=== PATIENT | male | born 1970 | race Caucasian/White ===

== ENCOUNTER 2018-01-26 00:31 | Emergency (ER) | payer OTHER, BC ==
[~2018-01-26] VITALS: Ht 185.4 cm; Wt 141.1 kg
[2018-01-26] MEDS ORDERED: MELATONIN5 M1 PO (01:07)
[2018-01-26] MEDS ORDERED: REGLAN 10 MG TA10 MG PER TUBE (01:08)
[2018-01-26] MEDS ORDERED: MIRALAX17 GM PO (01:08)
[2018-01-26] MEDS ORDERED: ANTI-GAS40 MG/0.6 PER TUBE (01:09)
[2018-01-26] MEDS ORDERED: TYLENOL325 MG PO (01:09)
[2018-01-26] MEDS ORDERED: PRILOCAINE TOP (01:10)
[2018-01-26] MEDS ORDERED: LIDOCAINE TOP (01:10)
[2018-01-26] MEDS ORDERED: POTASSIUM PER TUBE (01:11)
[2018-01-26] MEDS ORDERED: PROTONIX PER TUBE (01:12)
[2018-01-26] MEDS ORDERED: MOBIC15 MG PO (01:12)
[2018-01-26] MEDS ORDERED: ONDANSETRON HCL4 M2 PER TUBE (01:13)
== END 2018-01-26 02:29 | disposition home or self-care (01) ==
LOC: ER 00:31
DX: K94.23 Gastrostomy malfunction (principal); Z88.1 Allergy status to other antibiotic agents; Y83.9 Surgical procedure, unspecified as the cause of abnormal reaction of the patient, or of later complication, without mention of misadventure at the time of the procedure; Y92.89 Other specified places as the place of occurrence of the external cause